=== PATIENT | male | born 1985 | race Caucasian/White ===

== ENCOUNTER 2016-11-30 12:00 | Outpatient (CLI) | payer BC, OTHER | END 2016-11-30 23:59 | disposition home or self-care (01) | LOC: CT 12:00 | PROVIDERS: ATTEND Legal Medicine | DX: K31.89 Other diseases of stomach and duodenum (principal); R01.1 Cardiac murmur, unspecified; R51 Headache; R06.02 Shortness of breath | CPT/HCPCS: 70450; 93307 ==

== ENCOUNTER 2016-12-01 09:23 | Outpatient (CLI) | payer BC, OTHER | END 2016-12-01 23:59 | disposition home or self-care (01) | LOC: RT 09:23 | PROVIDERS: ATTEND Legal Medicine | DX: R01.1 Cardiac murmur, unspecified (principal) | CPT/HCPCS: 93307 ==

== ENCOUNTER 2017-06-03 14:05 | Outpatient (CLI) | payer BC, OTHER ==
[2017-06-03 15:09] LABS: BASOPHILS % (AUTO) 0.3 % (0.0-2.0); EOSINOPHILS # (AUTO) 0.1 K/uL (0.0-0.7); EOSINOPHILS % (AUTO) 0.6 % (0.0-7.0); HEMATOCRIT 46.6 % (40-50); HEMOGLOBIN 15.6 G/DL (14.0-18.0); LYMPHOCYTES # (AUTO) 2.4 K/UL (0.8-4.8); LYMPHOCYTES % (AUTO) 25.6 % (20.5-51.5); MEAN CORPUSCULAR HEMOGLOBIN 29.3 UUG (27.0-31.0); MEAN CORPUSCULAR HGB CONC 33 g/dL (32.0-37.0); MEAN CORPUSCULAR VOLUME 87.8 FL (82.0-92.0); MONOCYTES # (AUTO) 0.5 K/UL (0.1-1.30); MONOCYTES % (AUTO) 5.6 % (0.0-11.0); NEUTROPHILS # (AUTO) 6.2 K/UL (1.8-8.9); NEUTROPHILS % (AUTO) 67.9 % (38.5-71.5); PLATELET COUNT (AUTO) 231 K/UL (150-450); RED BLOOD CELL COUNT(AUTO) 5.31 MIL/UL (4.7-6.1); WHITE BLOOD COUNT (AUTO) 9.2 K/UL (4.0-11.2)
[2017-06-03 15:24] LABS: BILIRUBIN,TOTAL 1.1 mg/dL (0.2-1.0); CREATININE 0.8 mg/dL (0.6-1.3); TOTAL PROTEIN, SERUM 7.5 g/dL (6.4-8.2)
[2017-06-03 16:21] LABS: THYROID STIMULATING HORMONE 1.271 mIU/mL (0.358-3.740)
[2017-06-05 11:07] LABS: VIT D, 25-HYDROXY 28.9 ng/mL (30.0-100.0)
== END 2017-06-03 23:59 | disposition home or self-care (01) ==
LOC: LAB 14:05
PROVIDERS: ATTEND Family Medicine
DX: J34.3 Hypertrophy of nasal turbinates (principal); E55.9 Vitamin D deficiency, unspecified
CPT/HCPCS: 36415; 70450; 70486; 82306; 84207; 84443; 85025